=== PATIENT | male | born 1955 | race Caucasian/White ===

== ENCOUNTER → 2024-01-28 09:12 | Outpatient (REF) | payer MEDICARE, OTHER, SELFPAY | LOC: HWRCS 09:12 | PROVIDERS: ATTENDING PHYSICIAN Internal Medicine; FAMILY PHYSICIAN Family Medicine | DX: I25.10 Atherosclerotic heart disease of native coronary artery without angina pectoris (principal); I10 Essential (primary) hypertension; I49.3 Ventricular premature depolarization | CPT/HCPCS: 93306 ==

== ENCOUNTER → 2025-04-17 10:37 | Outpatient (REF) | payer MEDICARE, OTHER, SELFPAY | LOC: RAD 10:37 | PROVIDERS: ATTENDING PHYSICIAN Internal Medicine; FAMILY PHYSICIAN Family Medicine | DX: I77.810 Thoracic aortic ectasia (principal) | CPT/HCPCS: 71275; Q9967 ==

== ENCOUNTER → 2025-04-19 12:37 | Outpatient (REF) | payer MEDICARE, OTHER, SELFPAY | LOC: RCS 12:37 | PROVIDERS: ATTENDING PHYSICIAN Internal Medicine; FAMILY PHYSICIAN Family Medicine | DX: I49.3 Ventricular premature depolarization (principal) | CPT/HCPCS: 93225; 93226 ==

== ENCOUNTER → 2025-05-17 10:52 | Outpatient (REF) | payer MEDICARE, OTHER, SELFPAY | LOC: HWRCS 10:52 | PROVIDERS: ATTENDING PHYSICIAN Internal Medicine; FAMILY PHYSICIAN Family Medicine | DX: I49.3 Ventricular premature depolarization (principal) | CPT/HCPCS: 93306 ==

== ENCOUNTER 2025-06-13 10:29 | Day surgery (SDC) | payer MEDICARE, OTHER, SELFPAY ==
[2025-06-13 10:45] VITALS: BP 143/68; BMI 33.7
[2025-06-13 10:57] VITALS: BP 143/68
--- NOTE | 2025-06-13 13:14 | ITS.CL.ABL ---
[employer] - Ablation
Ablation
Procedure Report:
Procedure Report:
Aborted PVC/VT ablation
Mr. Carney is a very pleasant 70 yr old gentleman with high PVC burden and NSVT presented today to the EP lab for VT ablation.
Date of Procedure:
06/13/2025
Indications:
Ventricular tachycardia and PVCs.
Pre-Operative Diagnosis:
Ventricular tachycardia and high burden of PVC with syncope
Post-Operative Diagnosis:
Ventricular tachycardia and high burden of PVC with syncope
Procedure Performed:
Drug testing
Performing physician:
Nereida Michaels MD
Anesthesia:
See anesthesia records.
Detailed Description of the Procedure:
Written informed consent was obtained from the patient after a full explanation of the risks and benefits of the procedure including the risks of sedation and anesthesia. The patient was brought to the electrophysiology laboratory in stable
condition in fasting state. Continuous electrocardiographic and hemodynamic monitoring was initiated.
The initial rhythm was normal sinus rhythm.
There was no PVC or EKG abnormality noted.
Patient was observed with continuous electrocardiographic and hemodynamic monitoring in the lab. There was not a single PVCs noted. Normal EKG was noted.
Decision was made to proceed with Isuprel challenge.
Drug testing:
Isuprel was started at 2 mcg/min and later was increased to 6 mcg/min with adequate tachycardia response noted.
Despite tachycardia noted there was no abnormality electrical activity noted. No PVCs or VT was seen.
The VT was not noted throughout the observation.
Isuprel was stopped. During the washout phase, patient had a a total of three PVCs two of which were non clinical and one probably clinical PVC noted. No ventricular ectopy or arrhythmia was seen.
The decision was made not to proceed to ablation with no electrical abnormality present at this time despite being off the beta blockers.
Procedure End:
Patient remained hemodynamically stable and the procedure was aborted.
Estimated Blood loss:
<10 cc
Specimens Removed:
None.
Implants / Devices:
None
Urine output:
None
Complications of the Procedure:
None
Condition of Patient at Time of Transfer:
Hemodynamically stable with no neurological or vascular compromise.
Summary:
No sign of Ventricular tachycardia or ectopy noted with non clinical few PVCs due to Isuprel effect on the heart and drug testing with Isuprel. Ablation procedure was aborted.� �
[2025-06-13 13:19] VITALS: BP 161/84
[2025-06-13 13:30] VITALS: BP 143/73
--- NOTE | 2025-06-13 13:40 | PTCARENOTE ---
pt to be discharged to home after NO Procedure being performed
== END 2025-06-13 11:30 | disposition home or self-care (01) ==
LOC: CATH 10:29
PROVIDERS: ATTENDING PHYSICIAN Internal Medicine Cardiovascular Disease; FAMILY PHYSICIAN Family Medicine; OTHER PHYSICIAN Internal Medicine
DX: I47.20 Ventricular tachycardia, unspecified (principal); I49.3 Ventricular premature depolarization; Z53.8 Procedure and treatment not carried out for other reasons
CPT/HCPCS: 93654; 93799